=== PATIENT | female | born 1975 | race Caucasian/White ===

== ENCOUNTER 2016-11-09 16:23 | Emergency (ER) | payer MEDICAID ==
--- NOTE | 2016-11-09 16:58 | Emergency Department Record ---
History of Present Illness - General Chief complaint: ENT Stated complaint: DOESN'T RIGHT Time Seen by Provider: 11/09/16 16:48 Source: Patient Mode of Arrival: Ambulatory Limitations: No limitations - History of Present Illness Initial comments: 41 yo female presents with a full feeling in her throat. She had gall bladder surgery of Wednesday at [facility]. She states she has some pain with swallowing but she is eating and drinking easily. She "feels like something is in there". Clear voice. No fever. Mild dry cough is associated. She is also concerned about her umbilical incision as it is tender from her Wednesday surgery. No pus or redness. No swelling. She has not had any vomiting or diarrhea since [facility] complaint: Sore throat Onset/Timin -: Days(s) Location: Throat Severity: Mild Severity scale (1-10): 2 Quality: Aching Consistency: Constant Improves with: None Worsens with: None Context- Dental: Other Associated Symptoms: Sore throat - Related Data Home Medications Medication Instructions Recorded Confirmed Last Taken Pantoprazole Sodium [Protonix] 40 mg PO DAILY 02/13/16 11/09/16 11/09/16 Vit B12/Lmefolate Ca/Vit B6/B2 1 each PO DAILY 11/09/16 11/09/16 11/09/16 [l-Methyl-Mc Tablet] Allergies Allergy/AdvReac Type Severity Reaction Status Date / Time No Known Drug Allergies Allergy Verified 05/15/16 10:34 Travel Screening - Travel/Exposure Within Last 30 Days Have you traveled within the last 30 days?: No - Travel/Exposure Within Last Year Have you traveled outside the [place] in the last year?: No - Additonal Travel Details Have you been exposed to anyone with a communicable illness?: No - Travel Symptoms Symptom Screening: None Review of Systems Constitutional: Denies: Chills, Fever, Malaise, Weakness Eyes: Denies: Eye discharge, Photophobia ENT: Reports: Congestion, Throat pain. Denies: Ear pain, Epistaxis, Hearing loss Respiratory: Reports: Cough (dry cough). Denies: Dyspnea, Hemoptysis, Stridor, Wheezes Cardiovascular: Denies: Chest pain, Palpitations, Syncope Endocrine: Denies: Fatigue Gastrointestinal: Denies: Abdominal pain, Diarrhea, Nausea, Vomiting Genitourinary: Denies: Dysuria, Urgency Musculoskeletal: Denies: Arthralgia, Back pain, Myalgia, Neck pain Skin: Denies: Bruising, Change in color, Rash Neurological: Denies: Confusion, Headache Psychiatric: Denies: Anxiety Hematological/Lymphatic: Denies: Anemia, Blood Clots, Easy bleeding, Easy bruising, Swollen glands Past Medical History - SOCIAL HISTORY Smoking Status: Former smoker Alcohol Use: None Drug Use: None - RESPIRATORY Hx Respiratory Disorders: Yes Hx Asthma: Yes Hx Bronchitis: Yes - CARDIOVASCULAR Hx Cardio Disorders: Yes Comment:: BRADYCARDIA - NEURO Hx Neuro Disorders: No - GI Hx GI Disorders: No - Hx Genitourinary Disorders: No - ENDOCRINE Hx Endocrine Disorders: No - MUSCULOSKELETAL Hx Musculoskeletal Disorders: Yes - PSYCH Hx Psych Problems: No - HEMATOLOGY/ONCOLOGY Hx Hematology/Oncology Disorders: No Family Medical History Any Significant Family History?: Yes Hx Cancer: Grandparents Hx Diabetes: Father, Grandparents Hx Heart Disease: Grandparents Physical Exam - General General Appearance: Alert, Oriented x3, Cooperative, No acute distress Limitations: No limitations - Head Head exam: Normal inspection - Eye Eye exam: Normal appearance, PERRL. negative: Conjunctival injection - ENT ENT exam: Mucous membranes moist. negative: Mucous membranes dry, Normal orophraynx (very mild swelling and erythema of the uvula (minmal), no pus no obstruction) Ear exam: Normal external inspection. negative: External canal tenderness Nasal Exam: Normal inspection. negative: Discharge, Sinus tenderness Mouth exam: Tongue normal. negative: Drooling, Laceration, Muffled voice, Tongue elevation, Trismus Teeth exam: Normal inspection. negative: Dental caries Throat exam: Normal inspection. negative: Tonsillar erythema, Tonsillomegaly, Tonsillar exudate, R peritonsillar mass, L peritonsillar mass - Neck Neck exam: Normal inspection, Full ROM. negative: Tenderness - Respiratory Respiratory exam: Normal lung sounds bilaterally. negative: Accessory muscle use, Decreased breath sounds, Respiratory distress, Rhonchi, Stridor, Wheezes - Cardiovascular Cardiovascular Exam: Regular rate, Normal rhythm, Normal heart sounds - GI/Abdominal GI/Abdominal exam: Soft, Normal bowel sounds, Other (The surgical incisions are clean and dry, no redness or pus, the umbilical incision is not warm, red, or swollen, it appears normal on examination.). negative: Distended, Guarding, Hernia, Rigid, Tenderness - Rectal Rectal exam: Deferred - exam: Deferred - Extremities Extremities exam: Normal inspection, Full ROM, Normal capillary refill. negative: Pedal edema, Tenderness - Back Back exam: Reports: Normal inspection, Full ROM. Denies: Muscle spasm, Rash noted, Tenderness - Neurological Neurological exam: Alert, Normal gait, Oriented X3, Reflexes normal - Psychiatric Psychiatric exam: Normal affect, Normal mood Course Vital Signs 11/09/16 16:35 Temperature 98.4 F Pulse Rate 70 Respiratory 18 Rate Blood Pressure 118/69 Pulse Ox 99 - Reevaluation(s) Reevaluation #1: The soft tissue of the neck was negative She has very mild uvular erythema on examination I recommended humidifier at night and supportive treatment with ice cubes or popsicles as needed. 11/09/16 17:22 Disposition Clinical Impression: Uvular edema Disposition: Home, Self-Care Condition: (1) Good Instructions: Uvulitis (ED) Additional Instructions: Use a humidifier at night Use ice cubes or popsicles for comfort Return if worse, voice changes or any new concerns Call your surgeon if the incisions swell or turn red Forms: Patient Portal Access Time of Disposition: 17:24
--- NOTE | 2016-11-12 17:57 | RADIOLOGY REPORT ---
EXAM: SOFT TISSUE NECK HISTORY: SORE THROAT SINCE TYREE. TECHNIQUE: AP and lateral views of the neck soft tissues were obtained. Comparison: None. FINDINGS: The cervical airway is unremarkable. The retropharyngeal soft tissues are normal. The epiglottis and aryepiglottic folds are unremarkable as is the subglottic airway. There is no visible tonsillar or adenoidal hypertrophy. There is no abnormal soft tissue air. The bones are unremarkable. IMPRESSION: NORMAL SOFT TISSUE NECK EXAMINATION. JOB NUMBER: [id number] [facility]
== END 2016-11-09 17:44 | disposition home or self-care (01) ==
LOC: ER 16:23
DX: K13.79 Other lesions of oral mucosa (principal); R05 Cough; Z87.891 Personal history of nicotine dependence
CPT/HCPCS: 70360; 99283

== ENCOUNTER 2017-03-29 01:11 | Emergency (ER) | payer MEDICAID ==
--- NOTE | 2017-03-29 01:35 | Emergency Department Record ---
History of Present Illness - General Chief Complaint: Animal Bite Stated Complaint: DOG BITE Time Seen by Provider: 03/29/17 01:29 Source: Patient Mode of Arrival: Ambulatory Limitations: No limitations - History of Present Illness Initial Comments: 41 yo female presents to ED for evaluation of a dog bite to both hands that occurred just prior to arrival. Patient reports that the dogs are her own and can be watched. Patient reports that she was attempting to break up a fight between her dogs when the injury occurred. Patient denies health problems at her baseline, and is unsure if her tetanus is UTD. MD Complaint: Animal bite Onset/Timin -: Hour(s) Left: Hand, Right: Hand Animal: Dog Description: Household pet Mechanism: Bite Pain Description: Sharp Severity scale (1-10): 7 Context: Animals fighting Associated Symptoms: Bleeding Treatments Prior to Arrival: Wound dressing(s) - Related Data Home Medications Medication Instructions Recorded Confirmed Last Taken Pantoprazole Sodium [Protonix] 40 mg PO DAILY 02/13/16 03/29/17 03/29/17 Vit B12/Levomefolate/Vit B6/B2 1 each PO DAILY 11/09/16 03/29/17 11/09/16 [l-Methyl-Mc Tablet] Cholecalciferol (Vitamin D3) 2,000 unit PO DAILY 03/29/17 03/29/17 03/29/17 [Vitamin D3] Ondansetron HCl [Zofran] 4 mg PO Q6HR PRN 03/29/17 03/29/17 Unknown Previous Rx's Medication Instructions Recorded Amoxicillin/Potassium Clav 1 each PO Q6H #19 tablet 03/29/17 [Augmentin 875-125 Tablet] Hydrocodone/Acetaminophen [[facility] 1 each PO Q6H PRN #15 tablet 03/29/17 5-325 Tablet] Allergies Allergy/AdvReac Type Severity Reaction Status Date / Time No Known Drug Allergies Allergy Verified 03/29/17 01:15 Travel Screening - Travel/Exposure Within Last 30 Days Have you traveled within the last 30 days?: No - Travel/Exposure Within Last Year Have you traveled outside the [place] in the last year?: No - Additonal Travel Details Have you been exposed to anyone with a communicable illness?: No - Travel Symptoms Symptom Screening: None Review of Systems Constitutional: Denies: Chills, Fever, Malaise, Night sweats Eyes: Denies: Eye discharge, Eye pain ENT: Denies: Congestion, Ear pain Respiratory: Denies: Cough, Dyspnea Cardiovascular: Denies: Chest pain, Dyspnea on exertion Endocrine: Denies: Fatigue, Heat or cold intolerance Gastrointestinal: Denies: Abdominal pain, Nausea, Vomiting Genitourinary: Denies: Incontinence, Retention Musculoskeletal: Denies: Arthralgia, Back pain, Gout, Joint swelling Skin: Reports: Other (puncture wounds to the hands bilaterally). Denies: Bruising, Change in color, Rash Neurological: Denies: Abnormal gait, Confusion, Headache, Seizure Psychiatric: Denies: Anxiety Hematological/Lymphatic: Denies: Anemia, Blood Clots Past Medical History - SOCIAL HISTORY Smoking Status: Former smoker Alcohol Use: Rare Drug Use: Heavy Drug Use Detail:: Marijuana - RESPIRATORY Hx Respiratory Disorders: Yes Hx Asthma: Yes Hx Bronchitis: Yes - CARDIOVASCULAR Hx Cardio Disorders: Yes Comment:: BRADYCARDIA - NEURO Hx Neuro Disorders: Yes Comment:: trigeminal nuralgia - GI Hx GI Disorders: No - Hx Genitourinary Disorders: No - ENDOCRINE Hx Endocrine Disorders: No - MUSCULOSKELETAL Hx Musculoskeletal Disorders: Yes - PSYCH Hx Psych Problems: No - HEMATOLOGY/ONCOLOGY Hx Hematology/Oncology Disorders: No Family Medical History Any Significant Family History?: No Hx Cancer: Grandparents Hx Diabetes: Father, Grandparents Hx Heart Disease: Grandparents Physical Exam - General General Appearance: Alert, Oriented x3, Cooperative, Moderate distress Limitations: No limitations - Head Head exam: Atraumatic, Normocephalic, Normal inspection Head exam detail: negative: Abrasion, Contusion, Maharaj's sign, General tenderness, Hematoma, Laceration - Eye Eye exam: Normal appearance. negative: Conjunctival injection, Periorbital swelling, Periorbital tenderness, Scleral icterus - ENT Ear exam: negative: Auricular hematoma, Auricular trauma Nasal Exam: negative: Active bleeding, Discharge, Dried blood, Foreign body Mouth exam: negative: Drooling, Laceration, Muffled voice, Tongue elevation - Neck Neck exam: Normal inspection. negative: Meningismus, Tenderness - Respiratory Respiratory exam: Normal lung sounds bilaterally. negative: Rales, Respiratory distress, Rhonchi, Stridor - Cardiovascular Cardiovascular Exam: Regular rate, Normal rhythm, Normal heart sounds - GI/Abdominal GI/Abdominal exam: Soft. negative: Rebound, Rigid, Tenderness - Rectal Rectal exam: Deferred - exam: Deferred - Extremities Extremities exam: Tenderness, Other (TTP over sangeeta right middle and ring fingers , small puncture wounds present, TTP over the palmar aspect of the right hand with a 1.0 cm laceration is present, no actiuve bleedingis present, 1-2 other small puncture wounds are present.). negative: Calf tenderness, Pedal edema - Back Back exam: Denies: CVA tenderness (R), CVA tenderness (L) - Neurological Neurological exam: Alert, Normal gait, Oriented X3 - Psychiatric Psychiatric exam: Normal affect, Normal mood - Skin Skin exam: Normal color. negative: Abrasion Type of lesion: negative: abrasion Course Vital Signs 03/29/17 01:18 Pulse Rate 80 Respiratory 18 Rate Blood Pressure 144/77 Pulse Ox 98 - Reevaluation(s) Reevaluation #1: 03/29/17 01:35 Patient seen and examined, wounds are irrigated out. I discussed with the patient placing (1) suture to the palm of the right hand to partially close the wound, patient declined. Will obtain radiographs to exclude osseous injury and exclude FB and initiate Augmentin in the ED. Reevaluation #2: 03/29/17 01:53 Right hand: Negative Left Hand: Negative Patient was updated on all results, Augmentin initiated in ED and Tetanus updated. Patient appears stable for discharge with wound care instructions as well as instructions to return for any worsening of her symptoms, fevers, increased swelling, or drainage from a wound to the hand. Disposition Disposition: Discharge Clinical Impression: Dog bite, hand Qualifiers: Encounter type: initial encounter Laterality: unspecified laterality Qualified Code(s): S61.459A - Open bite of unspecified hand, initial encounter Disposition: Home, Self-Care Condition: (2) Stable Instructions: Animal Bite (ED) Additional Instructions: Return to ED if your symptoms worsen or if you have any concerns. [facility] and Augmentin as directed. Follow-up with your family doctor in 3-5 days as directed. Prescriptions: Amoxicillin/Potassium Clav [Augmentin 875-125 Tablet] 1 each PO Q6H #19 tablet Hydrocodone/Acetaminophen [[facility] 5-325 Tablet] 1 each PO Q6H PRN #15 tablet PRN Reason: Pain - Moderate (5-7) Forms: Patient Portal Access Time of Disposition: 01:55
[2017-03-29] MEDS ORDERED: HYDROCODONE/APAP 5/325MG TABLET PO ONE (01:36)
[2017-03-29] MEDS ORDERED: AMOXICILLIN/POTASSIUM CLAV 875MG/125MG TABLET PO ONE (01:36)
[2017-03-29] MEDS ORDERED: Diph,Pert(Acell),Tet Vac 0.5 ML SYR IM ONE (01:43)
--- NOTE | 2017-03-30 10:07 | RADIOLOGY REPORT ---
EXAM: RIGHT HAND, THREE VIEWS HISTORY: DOG BITE. TECHNIQUE: Three views of the right hand were obtained. Comparison: Right hand 01/26/12. Encounter: Initial. FINDINGS: No bone or joint abnormality. IMPRESSION: NEGATIVE RIGHT HAND EXAMINATION. JOB NUMBER: [id number] [facility]
--- NOTE | 2017-03-30 10:08 | RADIOLOGY REPORT ---
EXAM: LEFT HAND, THREE VIEWS HISTORY: DOG BITE LEFT HAND. TECHNIQUE: Three views of the left hand were obtained. Comparison: None. Encounter: Initial. FINDINGS: No bone or joint abnormality. IMPRESSION: NEGATIVE LEFT HAND EXAMINATION. JOB NUMBER: [id number] [facility]
== END 2017-03-29 02:09 | disposition home or self-care (01) ==
LOC: ER 01:11
DX: S61.252A Open bite of right middle finger without damage to nail, initial encounter (principal); S61.254A Open bite of right ring finger without damage to nail, initial encounter; S61.451A Open bite of right hand, initial encounter; S61.452A Open bite of left hand, initial encounter; W54.0XXA Bitten by dog, initial encounter; Y92.009 Unspecified place in unspecified non-institutional (private) residence as the place of occurrence of the external cause
CPT/HCPCS: 90715; 96372; 99283; 99284

== ENCOUNTER 2019-04-17 11:00 | Emergency (ER) | payer MEDICAID ==
--- NOTE | 2019-04-17 11:27 | Emergency Department Record ---
History of Present Illness - General Chief complaint: Extremity Problem Stated complaint: ARM/ELBOW PAIN Time Seen by Provider: 04/17/19 11:20 Source: Patient, RN notes reviewed Mode of Arrival: Ambulatory - History of Present Illness Initial comments: left elbow pain medial condyle Onset/Timin -: Days(s) Location: Left, Arm, Elbow Radiation: Proximal Severity scale (1-10): 7 Quality: Aching Consistency: Intermittent Improves with: Nothing, Rest Associated Symptoms: Denies other symptoms - Related Data Home Medications Medication Instructions Recorded Confirmed Last Taken Aspirin [Aspirin EC] 81 mg PO DAILY 04/17/19 04/17/19 1 Day Ago ~04/16/19 Dicyclomine HCl [Bentyl] 10 mg PO Q8H 04/17/19 04/17/19 1 Day Ago ~04/16/19 Fluoxetine HCl [Prozac] 40 mg PO DAILY 04/17/19 04/17/19 1 Day Ago ~04/16/19 Midodrine HCl 2.5 mg PO TID 04/17/19 04/17/19 1 Day Ago ~04/16/19 Previous Rx's Medication Instructions Recorded Naproxen [Naprosyn] 500 mg PO Q12H #20 tab. 04/17/19 Allergies Allergy/AdvReac Type Severity Reaction Status Date / Time No Known Drug Allergies Allergy Verified 04/17/19 11:13 Travel Screening - Travel/Exposure Within Last 30 Days Have you traveled within the last 30 days?: No - Travel/Exposure Within Last Year Have you traveled outside the [place] in the last year?: No - Additonal Travel Details Have you been exposed to anyone with a communicable illness?: No - Travel Symptoms Symptom Screening: None Review of Systems Reviewed: No additional complaints except as noted below Constitutional: Reports: As per HPI. Denies: Chills, Fever, Malaise, Night sweats, Weakness, Weight change Eyes: Reports: As per HPI. Denies: Eye discharge, Eye pain, Photophobia, Vision change ENT: Reports: As per HPI. Denies: Congestion, Dental pain, Ear pain, Epistaxis, Hearing loss, Throat pain Respiratory: Reports: As per HPI. Denies: Cough, Dyspnea, Hemoptysis, Stridor, Wheezes Cardiovascular: Reports: As per HPI. Denies: Arrhythmia, Chest pain, Dyspnea on exertion, Edema, Murmurs, Orthopnea, Palpitations, Paroxysmal nocturnal dyspne a, Rheumatic Fever, Syncope Endocrine: Reports: As per HPI. Denies: Fatigue, Heat or cold intolerance, Polydipsia, Polyuria Gastrointestinal: Reports: As per HPI. Denies: Abdominal pain, Constipation, Diarrhea, Hematemesis, Hematochezia, Melena, Nausea, Vomiting Genitourinary: Reports: As per HPI. Denies: Abnormal menses, Discharge, Dyspareunia, Dysuria, Frequency, Hematuria, Incontinence, Retention, Urgency Musculoskeletal: Reports: As per HPI. Denies: Arthralgia, Back pain, Gout, Joint swelling, Myalgia, Neck pain Skin: Reports: As per HPI. Denies: Bruising, Change in color, Change in hair/nails, Lesions, Pruritus, Rash Neurological: Reports: As per HPI. Denies: Abnormal gait, Confusion, Headache, Numbness, Paresthesias, Seizure, Tingling, Tremors, Vertigo, Weakness Psychiatric: Reports: As per HPI. Denies: Anxiety, Auditory hallucinations, Depression, Homicidal thoughts, Suicidal thoughts, Visual hallucinations Hematological/Lymphatic: Reports: As per HPI. Denies: Anemia, Blood Clots, Easy bleeding, Easy bruising, Swollen glands Past Medical History - SOCIAL HISTORY Smoking Status: Former smoker Alcohol Use: Rare Drug Use: Rare Drug Use Detail:: Marijuana - RESPIRATORY Hx Respiratory Disorders: Yes Hx Asthma: Yes - CARDIOVASCULAR Hx Cardio Disorders: Yes Hx Hypotension: Yes Hx Irregular Heartbeat: Yes Comment:: BRADYCARDIA - NEURO Hx Neuro Disorders: Yes Comment:: trigeminal nuralgia - GI Hx GI Disorders: Yes Hx Irritable Bowel: Yes - Hx Genitourinary Disorders: No - ENDOCRINE Hx Endocrine Disorders: Yes Hx Diabetes: Yes (monitoring) - MUSCULOSKELETAL Hx Musculoskeletal Disorders: Yes Comment:: unlnar tunnel - PSYCH Hx Psych Problems: No - HEMATOLOGY/ONCOLOGY Hx Hematology/Oncology Disorders: No Family Medical History Any Significant Family History?: Yes Hx Cancer: Grandparents Hx Diabetes: Father, Grandparents Hx Heart Disease: Grandparents Physical Exam - General General Appearance: Alert, Oriented x3, Cooperative, No acute distress - Head Head exam: Normal inspection - Eye Eye exam: Normal appearance, PERRL Pupils: Normal accommodation - ENT ENT exam: Normal exam, Mucous membranes moist, Normal external ear exam, Normal orophraynx, TM's normal bilaterally Ear exam: Normal external inspection. negative: External canal tenderness Nasal Exam: Normal inspection. negative: Discharge, Sinus tenderness Mouth exam: Normal external inspection, Tongue normal Teeth exam: Normal inspection. negative: Dental caries Throat exam: Normal inspection. negative: Tonsillar erythema, Tonsillar exudate - Neck Neck exam: Normal inspection, Full ROM. negative: Tenderness - Respiratory Respiratory exam: Normal lung sounds bilaterally. negative: Respiratory distress - Cardiovascular Cardiovascular Exam: Regular rate, Normal rhythm, Normal heart sounds - GI/Abdominal GI/Abdominal exam: Soft, Normal bowel sounds. negative: Tenderness - Rectal Rectal exam: Deferred - exam: Deferred - Extremities Extremities exam: Normal inspection, Full ROM, Normal capillary refill, Tenderness (medial epicondylar pain left elbow) - Back Back exam: Reports: Normal inspection, Full ROM. Denies: Muscle spasm, Rash noted, Tenderness - Neurological Neurological exam: Alert, Normal gait, Oriented X3, Reflexes normal - Psychiatric Psychiatric exam: Normal affect, Normal mood - Skin Skin exam: Dry, Intact, Normal color, Warm Course Vital Signs 04/17/19 11:03 Temperature 98.3 F Pulse Rate 63 Respiratory 20 Rate Blood Pressure 121/73 Pulse Ox 97 Medical Decision Making - Data Complexity MDM Data: X-Ray Ordered and/or Reviewed (negative for fractures) Disposition Clinical Impression: Epicondylitis elbow, medial Qualifiers: Laterality: left Qualified Code(s): M77.02 - Medial epicondylitis, left elbow Disposition: Home, Self-Care Condition: (1) Good Instructions: Tennis Elbow (ED) Additional Instructions: velcro epicondylar strap pick one up at the drugstore follow up with Dr Simms in 1-2 weeks continue to wear wrist splint for thumb Prescriptions: Naproxen [Naprosyn] 500 mg PO Q12H #20 tab. Forms: Patient Portal Access Time of Disposition: 11:35 Quality - Quality Measures Quality Measures: N/A - Blood Pressure Screening Does Patient Have Any of the Following: No Blood Pressure Classification: Pre-Hypertensive BP Reading Systolic Measurement: 121 Diastolic Measurement: 73 Screening for High Blood Pressure: < Pre-Hypertensive BP, F/U Documented > [G8950] Pre-Hypertensive Follow-up Interventions: Referral to alternative/primary care provider.
--- NOTE | 2019-04-19 09:41 | RADIOLOGY REPORT ---
STUDY: Left elbow x-ray. CLINICAL HISTORY: Elbow pain. TECHNIQUE: Four views of the left elbow. COMPARISON: None. FINDINGS: There is no sign of fracture, lytic lesion, or periosteal bone formation. Joint spacing was normal. There is no subluxation. There are no displaced fat pads. There are no radiopaque foreign bodies or soft tissue calcifications. IMPRESSION: No sign of any specific acute left elbow pathology. MTDD
== END 2019-04-17 11:54 | disposition home or self-care (01) ==
LOC: ER 11:00
DX: M77.02 Medial epicondylitis, left elbow (principal)
CPT/HCPCS: 99283

== ENCOUNTER 2019-11-16 12:40 | Emergency (ER) | payer MEDICAID ==
[2019-11-16 13:22] LABS: ABSOLUTE NEUTROPHIL COUNT 3.11; BASO % 0.5 % (0-6); EOS % 3.8 % (0-6); GRAN % 53.8 % (47-80); HEMATOCRIT 45.2 % (35.0-47.0); HEMOGLOBIN 14.3 gm/dl (11.6-16.0); LYMPH % 32.9 % (16-45); MEAN CELL VOLUME 96.4 fl (81-97); MEAN CORPUSCULAR HEMOGLOBIN 30.5 pg (27-33); MEAN CORPUSCULAR HGB CONC 31.6 g/dl (32-36); MEAN PLATELET VOLUME 11.4 fl (7.4-10.4); PLATELET COUNT 154 K/uL (130-400); RED BLOOD COUNT 4.69 M/uL (3.80-5.40); RED CELL DISTRIBUTION WIDTH 13.1 % (11.5-14.5); WHITE BLOOD COUNT W/O DIFF 5.8 K/uL (4.2-12.2)
[2019-11-16 13:32] LABS: BLOOD UREA NITROGEN 15 mg/dL (6-20); CREATININE 0.6 mg/dL (0.5-0.9); EST GLOMERULAR FILTRATION RATE > 60 mL/min
[2019-11-16 13:35] LABS: GLUCOSE,RANDOM 108 mg/dL (74-109)
[2019-11-16 13:37] LABS: ALB/GLOB RATIO 1.6 (1.1-1.8); ALBUMIN 4.3 g/dL (4.0-5.0); ALT/SGPT 18 U/L (<33); AST/SGOT 15 U/L (10.0-35.0)
[2019-11-16 13:38] LABS: ALKALINE PHOSPHATASE 56 U/L (35-104)
[2019-11-16 13:48] LABS: THYROID STIMULATING HORMONE 1.18 uIU/mL (0.270-4.20)
[2019-11-16 13:57] LABS: ERYTHROCYTE SEDIMENTATION RATE 3 mm/hr (0-20)
--- NOTE | 2019-11-16 14:32 | CT SCAN REPORT ---
EXAMINATION: CT Head without IV Contrast EXAM DATE: 11/16/2019 2:20 PM TECHNIQUE: Standard protocol CT images of the head were obtained without intravenous contrast. Bradshaw l and sagittal reconstructed images were created. INDICATION: Dizziness, numbness COMPARISON: CT head 07/09/2015 HAND DOMINANCE: Unknown. ENCOUNTER: Not applicable FINDINGS: No intra-axial or extra-axial hemorrhage. No extra-axial fluid collections. No mass effect or shift o f midline structures. No ventriculomegaly. No secondary CT findings of acutely increased intracranial or intraventricular pressure. Brain volume and ventricular size are appropriate for patient's stated age. No ventricular outflow ob struction. Brown-white matter differentiation is preserved. No discrete white matter abnormalities. No sulcal eff acement. No suspicious areas of altered attenuation. Enlarged and partially empty sella as on prior study. Otherwise, midline structures and craniocervica l junction are unremarkable. Minimal intracranial atherosclerotic calcifications are present. No depressed or widely calvarial fractures. No aggressive calvarial lesions. Visualized paranasal sinuses and temporal bone structures are well-aerated. Orbital compartments are unremarkable. IMPRESSION: No acute intracranial abnormality to the limits of noncontrast CT technique. Consider further evaluat ion with MRI, as clinically warranted. Dictated by: Gisela Morton MD on 11/16/2019 2:26 PM. .
--- NOTE | 2019-11-16 14:42 | Emergency Department Record ---
History of Present Illness - General Chief Complaint: Dizziness Stated Complaint: LIGHT HEADED, WEAK Time Seen by Provider: 11/16/19 12:54 Source: Patient Mode of Arrival: Ambulatory Limitations: No limitations - History of Present Illness Initial Comments: pt was sent in from her drs office because she has pain in her arms and legs and intermittent tingling around her mouth MD Complaint: Lightheadedness Onset/Timin -: Week(s) Timing: Unsure Description: Lightheadedness History of Same: No History of Trauma: No Improves With: Nothing Worsens With: Nothing Associated Symptoms: Denies other symptoms - Mindy Coma Scale Eye Response: (4) Open spontaneously Motor Response: (6) Obeys commands Verbal Response: (5) Oriented [place] Total: 15 - Symptoms of Stroke Symptoms of stroke: Numbness - Related Data Previous Rx's Medication Instructions Recorded Naproxen [Naprosyn] 500 mg PO Q12H #20 tab. 04/17/19 Allergies Allergy/AdvReac Type Severity Reaction Status Date / Time No Known Drug Allergies Allergy Verified 11/16/19 12:52 Travel Screening - Travel/Exposure Within Last 30 Days Have you traveled within the last 30 days?: No Review of Systems Reviewed: No additional complaints except as noted below Constitutional: Reports: As per HPI. Denies: Chills, Fever, Malaise, Night sweats, Weakness, Weight change Eyes: Reports: As per HPI. Denies: Eye discharge, Eye pain, Photophobia, Vision change ENT: Reports: As per HPI. Denies: Congestion, Dental pain, Ear pain, Epistaxis, Hearing loss, Throat pain Respiratory: Reports: As per HPI. Denies: Cough, Dyspnea, Hemoptysis, Stridor, Wheezes Cardiovascular: Reports: As per HPI. Denies: Arrhythmia, Chest pain, Dyspnea on exertion, Edema, Murmurs, Orthopnea, Palpitations, Paroxysmal nocturnal dyspnea, Rheumatic Fever, Syncope Endocrine: Reports: As per HPI. Denies: Fatigue, Heat or cold intolerance, Polydipsia, Polyuria Gastrointestinal: Reports: As per HPI. Denies: Abdominal pain, Constipation, Diarrhea, Hematemesis, Hematochezia, Melena, Nausea, Vomiting Genitourinary: Reports: As per HPI. Denies: Abnormal menses, Discharge, Dyspareunia, Dysuria, Frequency, Hematuria, Incontinence, Retention, Urgency Musculoskeletal: Reports: As per HPI, Myalgia. Denies: Arthralgia, Back pain, Gout, Joint swelling, Neck pain Skin: Reports: As per HPI. Denies: Bruising, Change in color, Change in hair/nails, Lesions, Pruritus, Rash Neurological: Reports: As per HPI, Numbness. Denies: Abnormal gait, Confusion, Headache, Paresthesias, Seizure, Tingling, Tremors, Vertigo, Weakness Psychiatric: Reports: As per HPI. Denies: Anxiety, Auditory hallucinations, Depression, Homicidal thoughts, Suicidal thoughts, Visual hallucinations Hematological/Lymphatic: Reports: As per HPI. Denies: Anemia, Blood Clots, Easy bleeding, Easy bruising, Swollen glands Past Medical History - SOCIAL HISTORY Smoking Status: Former smoker Alcohol Use: Rare Drug Use: None - RESPIRATORY Hx Respiratory Disorders: Yes Hx Asthma: Yes - CARDIOVASCULAR Hx Cardio Disorders: Yes Hx Hypotension: Yes Hx Irregular Heartbeat: Yes Comment:: BRADYCARDIA - NEURO Hx Neuro Disorders: Yes Comment:: trigeminal nuralgia - GI Hx GI Disorders: Yes Hx Irritable Bowel: Yes - Hx Genitourinary Disorders: No - ENDOCRINE Hx Endocrine Disorders: Yes Hx Diabetes: Yes (monitoring) - MUSCULOSKELETAL Hx Musculoskeletal Disorders: Yes Comment:: unlnar tunnel - PSYCH Hx Psych Problems: No - HEMATOLOGY/ONCOLOGY Hx Hematology/Oncology Disorders: No Family Medical History Any Significant Family History?: Yes Hx Cancer: Grandparents Hx Diabetes: Father, Grandparents Hx Heart Disease: Grandparents Physical Exam - General General Appearance: Alert, Oriented x3, Cooperative, No acute distress - Head Head exam: Normal inspection - Eye Eye exam: Normal appearance, PERRL, EOMI Pupils: Normal accommodation - ENT ENT exam: Normal exam, Mucous membranes moist, Normal external ear exam, Normal orophraynx Ear exam: Normal external inspection. negative: External canal tenderness Nasal Exam: Normal inspection. negative: Discharge, Sinus tenderness Mouth exam: Normal external inspection, Tongue normal Teeth exam: Normal inspection. negative: Dental caries Throat exam: Normal inspection. negative: Tonsillar erythema, Tonsillar exudate - Neck Neck exam: Normal inspection, Full ROM. negative: Tenderness - Respiratory Respiratory exam: Normal lung sounds bilaterally. negative: Respiratory distress - Cardiovascular Cardiovascular Exam: Regular rate, Normal rhythm, Normal heart sounds - GI/Abdominal GI/Abdominal exam: Soft, Normal bowel sounds. negative: Tenderness - Rectal Rectal exam: Deferred - exam: Deferred - Extremities Extremities exam: Normal inspection, Full ROM, Normal capillary refill. ne gative: Tenderness - Back Back exam: Reports: Normal inspection, Full ROM. Denies: Muscle spasm, Rash noted, Tenderness - Neurological Neurological exam: Alert, CN II-XII intact, Normal gait, Oriented X3 - Psychiatric Psychiatric exam: Normal affect, Normal mood - Skin Skin exam: Dry, Intact, Normal color, Warm Course Vital Signs 11/16/19 12:48 Temperature 98.7 F Pulse Rate 67 Respiratory 20 Rate Blood Pressure 114/58 Pulse Ox 99 Medical Decision Making - Lab Data Result diagrams: 11/16/19 13:14 11/16/19 13:14 Lab Results 11/16/19 11/16/19 11/16/19 Range/Units 13:14 13:14 13:14 WBC 5.8 (4.2-12.2) K/uL RBC 4.69 (3.80-5.40) M/uL Hgb 14.3 (11.6-16.0) gm/dl Hct 45.2 (35.0-47.0) % MCV 96.4 (81-97) fl MCH 30.5 (27-33) pg MCHC 31.6 L (32-36) g/dl RDW 13.1 (11.5-14.5) % Plt Count 154 (130-400) K/uL MPV 11.4 H (7.4-10.4) fl Gran % 53.8 (47-80) % Lymphocytes % 32.9 (16-45) % Monocytes % 9.0 (0-9) % Eosinophils % 3.8 (0-6) % Basophils % 0.5 (0-6) % Absolute Neutrophils 3.11 ESR 3 (0-20) mm/hr Sodium 141 (136-145) mmol/L Potassium 4.3 (3.4-4.5) mmol/L Chloride 103 (98-107) mmol/L Carbon Dioxide 25.0 (22-29) mmol/L Anion Gap 13.0 (7-16) BUN 15 (6-20) mg/dL Creatinine 0.6 (0.5-0.9) mg/dL Estimated GFR > 60 mL/min Random Glucose 108 (74-109) mg/dL Calcium 9.6 (8.6-10.0) mg/dL Total Bilirubin 0.20 (0.2-1.0) mg/dL AST 15 (10.0-35.0) U/L ALT 18 (<33) U/L Alkaline Phosphatase 56 (35-104) U/L Creatine Kinase 66 (26-192) U/L Total Protein 7.0 (6.6-8.7) g/dL Albumin 4.3 (4.0-5.0) g/dL Globulin 2.7 (1.4-4.8) gm/dL Albumin/Globulin Ratio 1.6 (1.1-1.8) TSH 1.18 (0.270-4.20) uIU/mL Disposition Disposition: Discharge Clinical Impression: Perioral numbness, Myalgia Disposition: Home, Self-Care Condition: (1) Good Instructions: Musculoskeletal Pain (ED) Additional Instructions: follow up with family doctor. return sooner if worse Quality - Quality Measures Quality Measures: N/A - Blood Pressure Screening Does Patient Have Any of the Following: No Blood Pressure Classification: Normal BP Reading Systolic Measurement: 114 Diastolic Measurement: 58 Screening for High Blood Pressure: < Normal BP, F/U Not Required > [G8783]
== END 2019-11-16 15:15 | disposition home or self-care (01) ==
LOC: ER 12:40
DX: R20.0 Anesthesia of skin (principal); R20.2 Paresthesia of skin; M79.18 Myalgia, other site; R42 Dizziness and giddiness; R53.1 Weakness; Z87.891 Personal history of nicotine dependence
CPT/HCPCS: 70450; 80053; 82550; 84443; 85025; 85651; 99284

== ENCOUNTER 2019-11-20 19:08 | Emergency (ER) | payer MEDICAID ==
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
== END 2019-11-20 20:41 | disposition home or self-care (01) ==
LOC: ER 19:08
DX: S66.912A Strain of unspecified muscle, fascia and tendon at wrist and hand level, left hand, initial encounter (principal); Y35.813A Legal intervention involving manhandling, suspect injured, initial encounter; Y92.414 Local residential or business street as the place of occurrence of the external cause; Z87.891 Personal history of nicotine dependence
CPT/HCPCS: 99283

== ENCOUNTER 2019-11-22 11:09 | Emergency (ER) | payer MEDICAID ==
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
== END 2019-11-22 12:22 | disposition home or self-care (01) ==
LOC: ER 11:09
DX: S66.911A Strain of unspecified muscle, fascia and tendon at wrist and hand level, right hand, initial encounter (principal); S16.1XXA Strain of muscle, fascia and tendon at neck level, initial encounter; Y35.813A Legal intervention involving manhandling, suspect injured, initial encounter; Y92.239 Unspecified place in hospital as the place of occurrence of the external cause; Z87.891 Personal history of nicotine dependence
CPT/HCPCS: 72040; 99284